=== PATIENT | male | born 1995 | race Caucasian/White ===

== ENCOUNTER 2024-05-15 18:46 | Emergency (ER) | payer BC, SELFPAY ==
--- NOTE | 2024-05-15 18:57 | ED_ITS ---
Discharge Plan Disposition Patient Disposition: Home, Self-Care Condition: Good Prescriptions Prescriptions: New pantoprazole 40 mg tablet,delayed release (DR/EC) 40 mg PO DAILY Qty: 30 0RF ondansetron 4 mg tablet,disintegrating 4 mg PO Q8H PRN (Reason: nausea and vomiting) 4 Days Qty: 12 0RF Referrals Follow up/Referrals: Provider,Referral, MD [Primary Care Provider] - See instructions Activity Restrictions/Add. Instructions Additional Instructions/Restrictions: You were evaluated in the emergency department today. At this time, labs and CT scans are reassuring. Ultimately, it is possible you have gastritis. For this, we are prescribing you pantoprazole which is stomach acid medication. I have also sent in Zofran for you to have as needed for nausea and vomiting. Please follow-up very closely with your primary care provider over the next 48 hours. Return to the emergency department for new or worsening symptoms. Clinical Impressions Clinical Impression: Acute upper abdominal pain, Gastritis, Early satiety Stand Alone Forms Stand Alone Forms: Work/School Release Instructions Patient Instructions: DI for Gastritis, DI for Abdominal Pain-Adult Print Language Print Language: Korean Discharge ED Provider: Razia Barcenas General Adult HPI <LORENZO Marshall - Last Filed: 05/15/24 19:16> General Chief complaint: Recheck/Abnormal Lab/Rx Stated complaint: feels like stomach is full w/no appitite or eating Time Seen by Provider: 05/15/24 18:57 Related Data Previous Rx's ?Medication ?Instructions ?Recorded ondansetron 4 mg disintegrating 4 mg PO Q8H PRN nausea and 05/15/24 tablet vomiting 4 days #12 tabs pantoprazole 40 mg tablet,delayed 40 mg PO DAILY #30 tabs 05/15/24 release Allergies Allergy/AdvReac Type Severity Reaction Status Date / Time Penicillins Allergy Rash Verified 05/15/24 19:08 <Razia Barcenas DO - Last Filed: 05/15/24 23:06> History of Present Illness HPI narrative: This patient is a 28-year-old male with a 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 Patient reports that 3 days ago, he went and did Airsoft guns with his friends, and he had a headache the whole day afterward. He states that usually he does not get headaches and when he does, headaches typically go away with drinking oral fluids. He push oral fluids and the headache is finally gone away today, but he is not feeling right and has had a poor appetite. He has not been able to eat very much over the last 24 hours. He notes that he feels like he has a lump in his throat like he needs to burp but burping does not help. He also notes that he feels like he has early fullness no fevers, chills, vision changes, numbness, tingling, unilateral weakness, sore throat, cough, congestion, body aches, chest pain, shortness of breath, abdominal pain, urinary symptoms, rashes, or swelling. He does note that he has had some diarrhea on review of systems. [facility] <LORENZO Marshall - Last Filed: 05/15/24 19:16> [facility] Disclaimer: The information contained in this section may have been updated after the patient was seen, as this information can be updated by other users. Social History Smoking Status: Never smoker alcohol intake: never current occupational status: employed <LORENZO Marshall - Last Filed: 05/15/24 19:16> ROS Obtained: Yes Systems reviewed as appropriate & no additional complaints except as documented Physical Exam <LORENZO Marshall - Last Filed: 05/15/24 19:16> General General appearance: alert and in no apparent distress Head Head exam: atraumatic and normal inspection Eye Eye exam: Present normal appearance, PERRL and EOMI ENT ENT exam: Present normal exam, normal oropharynx and mucous membranes moist Neck Neck exam: Present normal inspection, full ROM and trachea midline; Absent lymphadenopathy Chest Chest inspection: Present normal inspection and symmetric chest wall rise Respiratory Respiratory exam: Present normal lung sounds bilaterally; Absent accessory muscle use Cardiovascular Cardiovascular exam: Present regular rate, normal rhythm, normal heart sounds, +S1 and +S2 Abdominal Exam Abdominal exam: Present soft and normal bowel sounds; Absent tenderness, guarding or rebound Extremities Exam Extremities exam: Present normal inspection and full ROM Neurological Exam Neurological exam: Present alert, oriented X3 and CN II-XII intact Psychiatric Psychiatric exam: Present normal affect and normal mood Skin Skin exam: Present warm, dry and normal color Lymphatic Lymphatic Findings: no adenopathy <Razia Barcenas DO - Last Filed: 05/15/24 23:06> Cardiovascular Cardiovascular exam: Present tachycardia Back Exam Back exam: Present normal inspection and full ROM; Absent tenderness Medical Decision Making <LORENZO Marshall - Last Filed: 05/15/24 19:16> Medical Records Screening: Per USPSTF and CDC recommendations, given the prevalence of disease in our region, it is our hospital?s policy to screen for HIV and viral Hepatitis for all patients aged 18 and over and those with ongoing risk factors. Vital Signs: 05/15/24 18:59 05/15/24 21:54 Temperature 98.2 F 97.8 F Temperature Source Oral Oral Pulse Rate 89 Pulse Rate [Left] 118 H Respiratory Rate 18 17 Blood Pressure 117/79 Blood Pressure [Right Arm] 118/98 H Blood Pressure Mean [Right Arm] 104 Blood Pressure Source Automatic Cuff Blood Pressure Source [Right Arm] Automatic Cuff Blood Pressure Position Sitting Blood Pressure Position [Right Arm] Sitting 02 Sat by Pulse Oximetry 98 Oxygen Delivery Method Room Air Room Air Lab Data Lab Results 05/15/24 19:05: WBC 6.1, RBC 5.23, Hgb 16.0, Hct 46.7, MCV 89.4, MCH 30.6, MCHC 34.2, RDW 13.3, Plt Count 214, MPV 7.3 L, Neut % (Auto) 65.8, Lymph % (Auto) 24.0, Harnett % (Auto) 5.7, Eos % (Auto) 3.5, Baso % (Auto) 1.0, Neut # (Auto) 4.0, Lymph # (Auto) 1.5, Harnett # (Auto) 0.4, Eos # (Auto) 0.2, Baso # (Auto) 0.1, Sodium 140, Potassium 3.8, Chloride 105, Carbon Dioxide 25, Anion Gap 13.8, BUN 8 L, Creatinine 1.00, Estimated Creat Clear 128, Estimated GFR 88, Est GFR ( Amer) 106, Glucose 104 H, Calcium 9.5, Total Bilirubin 1.0, AST 33, ALT 25, Alkaline Phosphatase 90, Troponin I < 0.01, Total Protein 8.2, Albumin 4.9, Globulin 3.3 H, Albumin/Globulin Ratio 1.5, Lipase 54, TSH 1.47, Thyroxine (T4) 12.0 H, HIV 1&2 Antibody Rapid Nonreactive 05/15/24 19:19: VBG pH 7.37, VBG pCO2 43.4, VBG pO2 42.9 H, VBG HCO3 24.4, VBG Total CO2 25.7, VBG O2 Saturation 81.7 H, VBG Base Excess -0.9, VBG Lactic Acid 1.7 05/15/24 19:30: SARS-CoV-2 (PCR) Not detected, Influenza A Untype (PCR) Not detected, Influenza Type B (PCR) Not detected 05/15/24 20:27: Urine Color Yellow, Urine Appearance Clear, Urine pH 6.0, Ur Specific Warren 1.015, Urine Protein Negative, Urine Glucose (UA) Negative, Urine Ketones Negative, Urine Blood Negative, Urine Nitrate Negative, Urine Bilirubin Negative, Urine Urobilinogen 0.2, Ur Leukocyte Esterase Negative, Urine RBC None, Urine WBC Occasional, Ur Squamous Epith Cells Occasional, Urine Bacteria 2+, Urine Mucus 2+ 05/15/24 19:05 05/15/24 19:05 Orders (Tests/Meds): ED MEDICATIONS Discontinued Medications Generic Name Dose Route Start Last Admin Trade Name Mitra PRN Reason Stop Dose Admin Acetaminophen 1,000 mg 05/15/24 20:48 05/15/24 21:07 Acetaminophen 500mg Tab PO 05/15/24 20:49 1,000 mg ONCE ONE Administration Famotidine 20 mg 05/15/24 19:22 05/15/24 19:31 Famotidine 20mg/2ml Vial IV 05/15/24 19:23 20 mg ONCE ONE Administration Lactated Ringer's 1,000 mls @ 999 mls/hr 05/15/24 19:22 05/15/24 19:31 Lactated Ringer's 1000 Ml Bag IV 05/15/24 20:22 999 mls/hr .Q1H1M ONE Administration Iopamidol 70 ml 05/15/24 21:00 05/15/24 21:01 Iopamidol-370 (76%);100ml Bottle IV 05/15/24 21:01 70 ml ONCE ONE Administration Ondansetron HCl 4 mg 05/15/24 19:22 05/15/24 19:31 Ondansetron 4mg/2ml Vial IV 05/15/24 19:23 4 mg ONCE ONE Administration Pantoprazole Sodium 40 mg 05/15/24 20:48 05/15/24 21:07 Pantoprazole 40mg Tablet PO 05/15/24 20:49 40 mg ONCE ONE Administration Sodium Chloride 8 ml 05/15/24 19:22 05/15/24 19:31 Sodium Chloride 0.9% 10ml Vial IV 06/14/24 19:21 8 ml NEEDED PRN Administration dilute pepcid Sodium Chloride 50 ml 05/15/24 21:00 05/15/24 21:01 0.9 % Sodium Chloride 50 Ml Vial IV 05/15/24 21:01 50 ml ONCE ONE Administration Sodium Chloride 10 ml 05/15/24 21:00 05/15/24 21:01 Sodium Chloride 0.9% 10ml Syr (Rad Only) IV 05/15/24 21:01 10 ml ONCE ONE Administration ORDERS Category Date Time Status CT abdomen pelvis w con Stat Cat Scan 05/15/24 20:48 Completed CTA Chest [CT angio chest PE protocol] Stat Cat Scan 05/15/24 20:48 Completed Complete Blood Count Auto Diff Stat Lab 05/15/24 19:05 Completed Comprehensive Metabolic Panel Stat Lab 05/15/24 19:05 Completed HIV (1&2) Antibody Rapid Stat Lab 05/15/24 19:05 Completed Hep C Ab with Reflex to RNA Stat Lab 05/15/24 19:05 Received Lipase Stat Lab 05/15/24 19:05 Completed Rapid PCR Covid and Flu A/B Stat Lab 05/15/24 19:30 Completed T4 (Thyroxine) Stat Lab 05/15/24 19:05 Completed TSH [Thyroid Stimulating Hormone] Stat Lab 05/15/24 19:05 Completed Trop I [Troponin I] Stat Lab 05/15/24 19:05 Completed UA [Urinalysis and Microscopic] Stat Lab 05/15/24 20:27 Completed Urine Culture Stat Micro 05/15/24 20:27 Received VBG [Venous Blood Gas] Stat RT 05/15/24 19:19 Completed Medical Decision Narrative: In summary patient is a [age, sex] who presents to the emergency department for evaluation of [complaint]. Patient is [hemodynamically stable/unstable] upon arrival, [febrile/afebrile]. [Unremarkable physical exam, nonfocal exam versus focal remarkable exam]. Differential diagnosis includes [DDx]. Initial workup will be conducted with [hematologic labs, imaging, respiratory swab, describe workup]. Initial interventions include [crystalloid bolus, medications, p.o. challenge, etc.] initial workup reviewed by me [hematologic labs are remarkable for... Imaging remarkable for... Urinalysis remarkable for]. Upon repeat evaluation [patient had acceptable resolution of symptoms, had persistent pain for which additional interventions were conducted (describe interventions), tolerated p.o., was ambulatory, etc.]. Given this [patient is appropriate for discharge at this time and will be discharged with a prescription for... The case was discussed with hospital medicine regarding management and they will admit the patient their service for continued evaluation at this time... Etc.] Places where you can increase complexity: I informally interpreted the patient's chest x-ray or CT read and is remarkable for... Documenting what the doctor of podiatric medicine shows with rate and rhythm Consideration of test but deferring. Ex: I considered chest x-ray on this patient however given that they have no oxygen requirement and are clear to auscultation all lung zurita will be deferred. Social determinants of health: Given that patient is undomiciled increases complexity. Given that patient has polysubstance abuse compounds all aspects of care <Razia Barcenas, DO - Last Filed: 05/15/24 23:06> Medical Records Medical records reviewed: Yes I reviewed the patient's medical records. Mert Inquiry Pt receiving controlled substance: No Vital Signs: 05/15/24 18:59 05/15/24 21:54 Temperature 98.2 F 97.8 F Temperature Source Oral Oral Pulse Rate 89 Pulse Rate [Left] 118 H Respiratory Rate 18 17 Blood Pressure 117/79 Blood Pressure [Right Arm] 118/98 H Blood Pressure Mean [Right Arm] 104 Blood Pressure Source Automatic Cuff Blood Pressure Source [Right Arm] Automatic Cuff Blood Pressure Position Sitting Blood Pressure Position [Right Arm] Sitting 02 Sat by Pulse Oximetry 98 Oxygen Delivery Method Room Air Room Air Lab Data Lab results reviewed: Yes I reviewed the patient's lab results. Lab Results 05/15/24 19:05: WBC 6.1, RBC 5.23, Hgb 16.0, Hct 46.7, MCV 89.4, MCH 30.6, MCHC 34.2, RDW 13.3, Plt Count 214, MPV 7.3 L, Neut % (Auto) 65.8, Lymph % (Auto) 24.0, Harnett % (Auto) 5.7, Eos % (Auto) 3.5, Baso % (Auto) 1.0, Neut # (Auto) 4.0, Lymph # (Auto) 1.5, Harnett # (Auto) 0.4, Eos # (Auto) 0.2, Baso # (Auto) 0.1, Sodium 140, Potassium 3.8, Chloride 105, Carbon Dioxide 25, Anion Gap 13.8, BUN 8 L, Creatinine 1.00, Estimated Creat Clear 128, Estimated GFR 88, Est GFR ( Amer) 106, Glucose 104 H, Calcium 9.5, Total Bilirubin 1.0, AST 33, ALT 25, Alkaline Phosphatase 90, Troponin I < 0.01, Total Protein 8.2, Albumin 4.9, Globulin 3.3 H, Albumin/Globulin Ratio 1.5, Lipase 54, TSH 1.47, Thyroxine (T4) 12.0 H, HIV 1&2 Antibody Rapid Nonreactive 05/15/24 19:19: VBG pH 7.37, VBG pCO2 43.4, VBG pO2 42.9 H, VBG HCO3 24.4, VBG Total CO2 25.7, VBG O2 Saturation 81.7 H, VBG Base Excess -0.9, VBG Lactic Acid 1.7 05/15/24 19:30: SARS-CoV-2 (PCR) Not detected, Influenza A Untype (PCR) Not detected, Influenza Type B (PCR) Not detected 05/15/24 20:27: Urine Color Yellow, Urine Appearance Clear, Urine pH 6.0, Ur Specific Warren 1.015, Urine Protein Negative, Urine Glucose (UA) Negative, Urine Ketones Negative, Urine Blood Negative, Urine Nitrate Negative, Urine Bilirubin Negative, Urine Urobilinogen 0.2, Ur Leukocyte Esterase Negative, Urine RBC None, Urine WBC Occasional, Ur Squamous Epith Cells Occasional, Urine Bacteria 2+, Urine Mucus 2+ Orders (Tests/Meds): ED MEDICATIONS Discontinued Medications Generic Name Dose Route Start Last Admin Trade Name Freq PRN Reason Stop Dose Admin Acetaminophen 1,000 mg 05/15/24 20:48 11/25/24 21:07 Acetaminophen 500mg Tab PO 05/15/24 20:49 1,000 mg ONCE ONE Administration Famotidine 20 mg 05/15/24 19:22 05/15/24 19:31 Famotidine 20mg/2ml Vial IV 05/15/24 19:23 20 mg ONCE ONE Administration Lactated Ringer's 1,000 mls @ 999 mls/hr 05/15/24 19:22 05/15/24 19:31 Lactated Ringer's 1000 Ml Bag IV 05/15/24 20:22 999 mls/hr .Q1H1M ONE Administration Iopamidol 70 ml 05/15/24 21:00 05/15/24 21:01 Iopamidol-370 (76%);100ml Bottle IV 05/15/24 21:01 70 ml ONCE ONE Administration Ondansetron HCl 4 mg 05/15/24 19:22 05/15/24 19:31 Ondansetron 4mg/2ml Vial IV 05/15/24 19:23 4 mg ONCE ONE Administration Pantoprazole Sodium 40 mg 05/15/24 20:48 05/15/24 21:07 Pantoprazole 40mg Tablet PO 05/15/24 20:49 40 mg ONCE ONE Administration Sodium Chloride 8 ml 05/15/24 19:22 05/15/24 19:31 Sodium Chloride 0.9% 10ml Vial IV 06/14/24 19:21 8 ml NEEDED PRN Administration dilute pepcid Sodium Chloride 50 ml 05/15/24 21:00 05/15/24 21:01 0.9 % Sodium Chloride 50 Ml Vial IV 05/15/24 21:01 50 ml ONCE ONE Administration Sodium Chloride 10 ml 05/15/24 21:00 05/15/24 21:01 Sodium Chloride 0.9% 10ml Syr (Rad Only) IV 05/15/24 21:01 10 ml ONCE ONE Administration ORDERS Category Date Time Status CT abdomen pelvis w con Stat Cat Scan 05/15/24 20:48 Completed CTA Chest [CT angio chest PE protocol] Stat Cat Scan 05/15/24 20:48 Completed Complete Blood Count Auto Diff Stat Lab 05/15/24 19:05 Completed Comprehensive Metabolic Panel Stat Lab 05/15/24 19:05 Completed HIV (1&2) Antibody Rapid Stat Lab 05/15/24 19:05 Completed Hep C Ab with Reflex to RNA Stat Lab 05/15/24 19:05 Received Lipase Stat Lab 05/15/24 19:05 Completed Rapid PCR Covid and Flu A/B Stat Lab 05/15/24 19:30 Completed T4 (Thyroxine) Stat Lab 05/15/24 19:05 Completed TSH [Thyroid Stimulating Hormone] Stat Lab 05/15/24 19:05 Completed Trop I [Troponin I] Stat Lab 05/15/24 19:05 Completed UA [Urinalysis and Microscopic] Stat Lab 05/15/24 20:27 Completed Urine Culture Stat Micro 05/15/24 20:27 Received VBG [Venous Blood Gas] Stat RT 05/15/24 19:19 Completed ECG Data Tracing #1: I reviewed this ECG and interpreted as documented below: Normal sinus rhythm with a ventricular rate of 77 bpm. Right axis deviation. No acute ST changes concerning for ischemia noted. 1 PVC noted. Normal intervals noted ECG initial impression date: 05/15/24 ECG initial impression time: 19:43 Medical Decision Narrative: In summary, this patient is a 28-year-old male presenting to the Emergency Department for evaluation of nausea, poor appetite, early satiety. He did have a headache yesterday but this resolved. Differential diagnoses considered include but are not limited to viral syndrome, gastroenteritis, dehydration, pancreatitis, peptic ulcer disease, esophagitis. Ruling out the most morbid conditions drove assessment. It should be noted patient's history includes leukemia which is reportedly at goal therapy. This complicates all aspects of care by increasing patient's risk for morbidity. On exam, the patient is sitting upright in bed in no acute distress. He is mildly tachycardic but otherwise vitals are reassuring. Exam is reassuring with benign cardiopulmonary exam and benign abdominal exam. He is neurologically intact and has no headache or neurologic symptoms at this time. Workup included broad lab evaluation to evaluate for infectious, metabolic, cardiac causes of his symptoms. He was given a bolus of IV fluids as well as IV Zofran and Pepcid. On reassessment, the patient is now complaining of left upper quadrant abdominal pain is worse when he takes a deep breath. Labs demonstrated normal CBC, reassuring chemistry with no transaminitis, elevation in lipase, or other concern. Troponin negative and EKG reassuring. I ordered CT PE as well as CT abdomen pelvis with IV contrast given the patient's significant pain and continued concern. CT scans were not concerning for any acute pathology. Ultimately, I feel that the patient is appropriate for discharge home at this time. It is possible this could be gastritis, so he was treated with PPI. He was given very strict return precautions and instructions for close outpatient follow-up Critical Care <Razia Barcenas, DO - Last Filed: 05/15/24 23:06> Critical Care Time Critical Care Time: No
[2024-05-15 18:59] VITALS: BP 118/98; PULSE 118; RESP 18; TEMP 36.8; O2SAT 98; BMI 25.1
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
--- OUTSIDE RECORDS SUMMARY | 2024-05-15 19:17 | XMS_ITS | Clinical Summary ---
Author Organization [facility] Address [address] [place] [address] Phone [email or web address] [email or web address] Care Chainman Name Role Phone Unavailable Primary Care Provider Unavailabl e Allergies Active Allergy Reactions Criticality Noted Date Comments Penicillins Rash Low 08/31/2013 Medications levothyroxine (SYNTHROID) 112 MCG tablet Take 112 mcg by mouth once daily as needed. 04/13/2022 Active Active Problems No known active problems Social History Tobacco Use Types Packs/Day Years Used Date Smoking Tobacco: Never Assessed Stress Answer Date Recorded Stress in your Life Not on file 04/24/2024 Dealing with Stress 3 04/24/2024 Sex and Gender Information Value Date Recorded Sex Assigned at Not on file Legal Sex Male 7:15 AM CDT Gender Identity Not on file Sexual Orientation Not on file Last Filed Vital Signs Vital Sign Reading Time Taken Comments Blood Pressure 105/73 08/24/2023 10:17 PM EST Pulse 74 08/24/2023 10:17 PM EST Temperature 36.2 ??C (97.1 ??F) 08/24/2023 10:[address] Respiratory Rate 18 12/30/2022 8:15 AM EDT Oxygen Saturation 98% 08/24/2023 10:17 PM EST Inhaled Oxygen Concentration - - Weight 86.6 kg (191 lb) 08/24/2023 10:17 PM EST Height 182.9 cm (6') 08/24/2023 10:17 PM EST Body Mass Index 25.9 08/24/2023 10:17 PM EST Plan of Treatment Health Maintenance Due Date Last Done Comments Dental Cleaning/Exam 1993 HIV Screening 1993 Hepatitis C Screening 1993 Tetanus (Tdap or Td) Immunization 2004 Hep B Infection Screening - Surface Antigen 2011 Covid-19 Immunization (3 - Moderna risk series) 11/12/2021 10/15/2021, 09/17/2021 HPV Immunization (3 - Risk male 3-dose series) 07/26/2022 03/25/2022, 10/28/2021 Polio Immunization (4 of 4 - 5-dose series) 01/21/2023 07/24/2022, 03/25/2022, 10/28/2021, Additional history exists Annual Preventive Exam 12/31/2023 12/30/2022 Influenza Immunization (#1) 2024 03/0 12/2021, 05/24/2020, 04/21/2017 HIB Immunization Aged Out 07/24/2022, 10/2021, 10/28/2021 No longer eligible based on patient's age to complete this topic Hepatitis B Immunization Completed 023, 03/25/2022, 10/28/2021 Pneumococcal: Ped (0 to 5 Yrs) and At-Risk Member (6 to 64 Yrs) Aged Out 07/24/2022, 03/25/2022, 10/28/2021 No longer eligible based on patient's age to complete this topic Hepatitis A Immunization Aged Out No longer eligible based on patient's age to complete this topic Varicella Immunization Aged Out No lo nger eligible based on patient's age to complete this topic
[2024-05-15 19:25] LABS: Basophils # 0.1 K/mm3 (0-0.2); Eosinophils # 0.2 K/mm3 (0.0-0.4); Eosinophils % 3.5 % (0.1-12.0); Hematocrit 46.7 % (42.0-52.0); Lymphocytes # 1.5 K/mm3 (0.7-4.5); Mean Corpuscular HGB Conc 34.2 g/dL (31.8-35.4); Mean Corpuscular Hemoglobin 30.6 pg (27.0-31.2); Mean Corpuscular Volume 89.4 fl (80-94); Mean Platelet Volume 7.3 fl (7.4-10.4); Monocytes # 0.4 K/mm3 (0.1-1.0); Monocytes % 5.7 % (1.7-9.3); Neutrophils % 65.8 % (37.0-80.0); Platelet Count 214 K/mm3 (142-424); Red Blood Count 5.23 M/mm3 (4.60-6.20); Red Cell Distribution Width 13.3 % (11.5-17.5); White Blood Count 6.1 K/mm3 (4.8-10.8)
[2024-05-15 19:30] LABS: Lactate Venous 1.7 mmol/L (0.4-2.0); VBG Base Excess -0.9 mmol/L (-2.4-2.3); VBG HCO3 24.4 mmol/L (23-30); VBG Oxygen Saturation 81.7 % (50-70); VBG PCO2 43.4 mmol/L (35-51); VBG PH 7.37 mmol/L (7.31-7.41); VBG PO2 42.9 mmol/L (28-40); VBG Total CO2 25.7 mmol/L (23-27)
[2024-05-15] MEDS: FAMOTIDINE 20MG/2ML VIAL 20 MG IV (19:31)
[2024-05-15] MEDS: ONDANSETRON 4MG/2ML VIAL 4 MG IV (19:31)
[2024-05-15] MEDS: LACTATED RINGERS 1000ML 1,000 ML 999 ML IV (19:31)
[2024-05-15] MEDS: SODIUM CHLORIDE 0.9% 10ML VIAL 8 ML IV (19:31)
[2024-05-15 19:40] LABS: Coronavirus 19, PCR Not Detected (NotDetected); Influenza A, PCR Not Detected (NotDetected); Influenza B, PCR Not Detected (NotDetected)
--- NOTE | 2024-05-15 19:40 | ECG_ITS ---
APPROVED REPORT Exam: Resting ECG HR:77 bpm ECG Measurements Heart Rate 77 AXES ME 160 P 73 QRSd 93 QRS 104 QT 357 T 63 QTc 389 Conclusion SINUS RHYTHM WITH OCCASIONAL VENTRICULAR PREMATURE COMPLEXES RIGHT AXIS DEVIATION [QRS AXIS > 100] ABNORMAL ECG Electronically signed by : COLETTE PATEL, 05/15/2024 23:28:24
[2024-05-15 19:53] LABS: Albumin Level 4.9 g/dl (3.5-5.0); Chloride 105 mmol/L (98-107); Sodium 140 mmol/L (136-145)
[2024-05-15 19:54] LABS: Potassium 3.8 mmoL/L (3.5-5.1)
[2024-05-15 19:56] LABS: Alanine Aminotransferase 25 U/L (12-78); Albumin/Globulin Ratio 1.5 (1.1-1.8); Alkaline Phosphatase 90 U/L (38-126); Anion Gap 13.8 mEq/L (5-15); Aspartate Amino Transferase 33 U/L (17-59); Blood Urea Nitrogen 8 mg/dl (9-20); Carbon Dioxide 25 mmol/L (22.0-30.0); Creatinine Clearance Estimated 128 mL/min (50-200); Estimated Glomerular Filt Rate 88 ml/min (>60); GFR (African American) 106 ML/MIN (>60); Globulin 3.3 g/dL (1.3-3.2); Lipase 54 U/L (23-300); Total Protein,Serum 8.2 g/dl (6.3-8.2)
[2024-05-15 19:57] LABS: Calcium 9.5 mg/dl (8.4-10.2); Glucose 104 mg/dl (74-100)
[2024-05-15 20:10] LABS: Troponin I < 0.01 ng/ml (0.00-0.034)
[2024-05-15 20:27] LABS: Thyroid Stimulating Hormone 1.47 uIU/mL (0.465-4.68)
[2024-05-15 20:32] LABS: Microscopic, Urine URINE MICROSCOPIC (MICROSCOPIC)
[2024-05-15 20:35] LABS: Appearance,Urine CLEAR (Clear); Bilirubin,Urine Negative (Negative); Blood, Urine Negative (Negative); Color,Urine YELLOW (Yellow); Glucose,Urine (UA) Negative (Negative); Ketones,Urine Negative (Negative); Leukocyte Esterase,Urine Negative (Negative); Nitrate,Urine Negative (Negative); Protein,Urine Negative (Negative); Specific Gravity, Urine 1.015 (1.005-1.030); Urobilinogen,Urine 0.2 EU/dl (0.2)
--- NOTE | 2024-05-15 20:48 | CT_ITS ---
PROCEDURE INFORMATION: Exam: CT Abdomen And Pelvis With Contrast Exam date and time: 05/15/2024 8:59 PM Age: 28 years old Clinical indication: Abdominal pain; Additional info: L side pain, pmh leukemia TECHNIQUE: Imaging protocol: Computed tomography of the abdomen and pelvis with contrast. 3D rendering (Not supervised by radiologist): MIP and/or 3D reconstructed images were created by the technologist. Radiation optimization: All CT scans at this facility use at least one of these dose optimization techniques: automated exposure control; mA and/or kV adjustment per patient size (includes targeted exams where dose is matched to clinical indication); or iterative reconstruction. Contrast material: ISOVUE; Contrast volume: 70 ml; Contrast route: IV; COMPARISON: CT ANGIO CHEST PE PROTOCOL 05/15/2024 8:59 PM FINDINGS: Liver: Normal. No mass. Gallbladder and biliary ducts: Normal. No calcified stones. No ductal dilation. Pancreas: Normal. No ductal dilation. Spleen: Normal. No splenomegaly. Adrenal glands: Normal. No mass. Kidneys and ureters: Normal. No hydronephrosis. Stomach and bowel: Multiple surgical clips are present around the cecum with an additional suture line adjacent to the cecum indicating previous appendectomy. No abnormal bowel dilation Appendix: See Stomach and bowel finding. Intraperitoneal space: No visible free peritoneal fluid Vasculature: Unremarkable. No abdominal aortic aneurysm. Lymph nodes: Unremarkable. No enlarged lymph nodes. Urinary bladder: Unremarkable as visualized. Reproductive: Unremarkable as visualized. Bones/joints: Unremarkable. No acute fracture. Soft tissues: Unremarkable. IMPRESSION: 1. No visible acute intra-abdominal abnormality. 2. Prior appendectomy.
--- NOTE | 2024-05-15 20:48 | CT_ITS ---
PROCEDURE INFORMATION: Exam: CTA Chest With Contrast Exam date and time: 05/15/2024 8:59 PM Age: 28 years old Clinical indication: Other: L side pain, pmh leukemia TECHNIQUE: Imaging protocol: Computed tomographic angiography of the chest with contrast. Exam focused on the arteries. 3D rendering (Not supervised by radiologist): MIP and/or 3D reconstructed images were created by the technologist. Radiation optimization: All CT scans at this facility use at least one of these dose optimization techniques: automated exposure control; mA and/or kV adjustment per patient size (includes targeted exams where dose is matched to clinical indication); or iterative reconstruction. Contrast material: ISOVUE 370; Contrast volume: 70 ml; Contrast route: INTRAVENOUS (IV); COMPARISON: CT ABDOMEN PELVIS W CON 05/15/2024 8:59 PM FINDINGS: Pulmonary arteries: No CT evidence of acute pulmonary embolus. Aorta: No aortic dissection. Lungs: Unremarkable. No consolidation. No masses. Pleural spaces: No pleural effusion. No pneumothorax. Heart: Unremarkable. No cardiomegaly. No pericardial effusion. Lymph nodes: Unremarkable. No enlarged lymph nodes. Bones/joints: Unremarkable. No acute fracture. Soft tissues: Unremarkable. Other findings: Suboptimal contrast bolus. Many of the smaller subsegmental branches are not well opacified. IMPRESSION: No CT evidence of acute pulmonary embolus.
[2024-05-15 20:50] LABS: Bacteria,Urine 2+ /lpf; Mucus,Urine 2+ /lpf; Squamous Epithelial Cell,Urine Occasional #/hpf (0-5); WBC,Urine Occasional #/hpf (0-3)
[2024-05-15] MEDS: IOPAMIDOL-370 (76%);100ML BOTTLE 70 ML IV (21:01)
[2024-05-15] MEDS: 0.9 % SODIUM CHLORIDE 50 ML VIAL IV (21:01)
[2024-05-15] MEDS: SODIUM CHLORIDE 0.9% 10ML SYR (RAD ONLY) 10 ML IV (21:01)
[2024-05-15] MEDS: PANTOPRAZOLE 40MG TABLET 40 MG PO (21:07)
[2024-05-15] MEDS: ACETAMINOPHEN 500MG TAB 1000 MG PO (21:07)
[2024-05-15 21:45] LABS: HIV (1&2) Antibody Rapid NONREACTIVE (NONREACTIVE)
[2024-05-15 21:54] VITALS: BP 117/79; PULSE 89; RESP 17; TEMP 36.6; O2SAT 98
[2024-05-17 08:22] LABS: HCV Ab Non Reactive (Non Reactive)
== END 2024-05-15 21:54 | disposition home or self-care (01) ==
PROVIDERS: Physician Assistant; Emergency Provider Emergency Medicine
DX: R68.81 Early satiety (principal); K29.70 Gastritis, unspecified, without bleeding; R10.10 Upper abdominal pain, unspecified; R11.0 Nausea; R63.8 Other symptoms and signs concerning food and fluid intake; R51.9 Headache, unspecified; R19.7 Diarrhea, unspecified
CPT/HCPCS: 71275; 74177; 80050; 80053; 81001; 82803; 83690; 84436; 84443; 84484; 85025; 86803; 87086; 87389; 87636; 93005; 96361; 96374; 96375; 99285; J2405; J7120; Q9967; S0028

== ENCOUNTER 2025-01-19 22:38 | Emergency (ER) | payer BC, SELFPAY ==
--- OUTSIDE RECORDS SUMMARY | 2024-12-20 16:00 | XMS_ITS | Encounter Summary ---
Author Organization Healthcare Address [address] 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 Medication management Other fatigue Roberto Macias DO [address] [place] [address] Phone: tel: fax: Referral ID Status Reason Start Date Expiration Date V isits Requested Visits Authorized [id number] Authorized 12/20/2024 06/21/2026 1 1 Reason for Visit * Reason Comments Hypothyroidism due to David's thyroi ditis Encounter Details Date Type Department Care Team (Late st Contact Info) Description 12/20/2024 4:00 PM EDT Office [facility] [address] [place] [address] Roberto Macias DO [address] [facility] [address] [place] [address] 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 (Primary Dx); Medication management; Other fatigue Social History Tobacco Use Types Packs/Day Years Used Date Smoking Tobacco: Never Smokeless Tobacco: Never Tobacco Cessation:Counseling Given: Not Answered Alcohol Use Standard Drinks/Week Comments Yes 0 (1 standard drink = 0.6 oz pur e alcohol) ocassionally PHQ-2 Answer Date Recorded Patient Health Questionnaire-2 Score 0 01/19/2024 PHQ-2A Answer Date Recorded Patient Health Questionnaire-2 Score 0 10/30/2022 Sex and Gender Information Value Date Recorded Sex Assigned at Not on file Legal Sex Male 8:50 PM EDT Gender Identity Not on file Sexual Orientation Not on file documented as of this encounter Last Filed Vital Signs Vital Sign Reading Time Taken Comments Blood Pressure 126/78 12/20/2024 4:23 PM EDT Pulse 73 12/20/2024 4:23 PM EDT Temperature - - Respiratory Rate - - Oxygen Saturation - - Inhaled Oxygen Concentration - - Weight 88.7 kg (195 lb 8.8 oz) 12/20/2024 4:23 P M EDT Height 182.9 cm (6') 12/20/2024 4:23 PM EDT Body Mass Index 26.52 12/20/2024 4:23 PM EDT documented in this encounter Miscellaneous Notes * Assessment & Plan Note - Roberto Macias DO - 12/20/2024 4:00 PM EDT Associated Problem(s): 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 * Assessment & Plan Note - Roberto Macias DO - 12/20/2024 4:00 PM EDT Associated Problem(s): Medication management Orders: TSH; Future T4, free; Future Follow Up [facility]; Future levothyroxine (Synthroid, Levoxyl) 112 MCG tablet; Take 1 tablet by mouth daily. * Addendum Note - Roberto Macias DO - 12/20/2024 4:00 PM EDTAddended by: ROBERTO MACIAS on: 12/21/2024 07:40 AM Modules accepted: Orders * Progress Notes - Roberto Macias DO - 12/20/2024 4:00 PM EDT Established Patient Visit [facility] Chief Complaint: Hypothyroidism Subjective HPI Mr. Way, 29 y/o M, is here today for a follow up visit for hypothyroidism. His medical history isnotable for APL which is currently in remission. He does feel like he is more fatigued and notes some weight gain. Thyroid Last Visit: 10/19/23 Diagnosis: hypothyroidism Diagnosis Date: 2021 Current Medications: Levothyroxine 112 mcg daily Compliance: good Reports taking on empty stomach without other medications. 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 The following portions of the patient's chart were reviewed in this encounter and updated as appropriate: past medical history, surgical history, family history, tobacco history, allergies, and medications Review of Systems Constitutional: Positive for fatigue and unexpected weight change. Negative for activity change. HENT: Negative for trouble swallowing. Respiratory: Negative for cough and shortness of breath. Cardiovascular: Negative for chest pain. Gastrointestinal: Negative for constipation and diarrhea. Allergic/Immunologic: Negative for immunocompromised state. Psychiatric/Behavioral: Negative for sleep disturbance. Objective Vitals: 12/20/24 1623 BP: 126/78 Pulse: 73 Physical Exam Constitutional: Appearance: Normal appearance. HENT: Head: Normocephalic and atraumatic. Right Ear: External ear normal. Left Ear: External ear normal. Nose: Nose normal. Mouth/Throat: Mouth: Mucous membranes are moist. Eyes: General: No scleral icterus. Neck: Comments: Thyroid gland is normal size Cardiovascular: Rate and Rhythm: Normal rate and regular rhythm. Pulmonary: Effort: Pulmonary effort is normal. No respiratory distress. Breath sounds: Normal breath sounds. Musculoskeletal: Cervical back: Neck supple. Skin: General: Skin is warm and dry. Neurological: Mental Status: He is alert and oriented to person, place, and time. Psychiatric: Mood and Affect: Mood normal. Thought Content: Thought content normal. 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 Medication management Orders: TSH; Future T4, free; Future Follow Up [facility]; Future levothyroxine (Synthroid, Levoxyl) 112 MCG tablet; Take 1 tablet by mouth daily. Other fatigue Orders: TSH; Future T4, free; Future Follow Up [facility]; Future Hypothyroidism due to David's Thyroiditis Medication Management -Diagnosed in 2021 -Thyroid antibodies were positive -Current regimen of Levothyroxine 112 mcg daily -Reports good compliance -No recent labs available for review PLAN: -Will check TSH and FT4 today -Continue current dosing of Levothyroxine and adjust, if needed, pending labs -Reviewed proper administration of Levothyroxine and if they miss a dose, can double the next day Fatigue -Worsening -Reports sleeping well and waking rested but could nap during the day -He is working shift manager PLAN: -Check TSH and FT4 as discussed above -If normal, fatigue would not be related to thyroid disease RTC in 1 year Roberto Macias, DO Post Visit Addendum: Labs reviewed and normal. Continue current dose of Levothyroxine. Messaged with results. Refills ordered. Component Latest Ref Rng 12/20/2024 Free T4 0.8 - 1.7 ng/dL 1.4 TSH 0.40 - 4.20 uIU/mL 2.32 [1] Current Outpatient Medications on File Prior to Visit Medication Sig Dispense Refill levothyroxine (Synthroid, Levoxyl) 112 MCG tablet TAKE 1 TABLET BY MOUTH EVERY DAY 30 tablet 0 No current facility-administered medications on file prior to visit. [2] Allergies Allergen Reactions Penicillins Rash documented in this encounter Plan of Treatment Upcoming Encounters Date Type Department Care Team (Late st Contact Info) Description 01/24/2025 8:40 AM EDT Office Visit [facility] [address] [facility], [address]nd [place] [address] Vidya Corona, ACCOUNTS PAYABLE PROCESSOR [address] [place] [phone] 12/26/2025 4:00 PM EDT Office Visit [facility] End[facility] [address] [place] [address] Roberto Macias DO [address] [facility] [address] [place] [address] Scheduled Referrals Name Type Priority Associated Diagnoses Orde r Schedule Follow Up [facility] Outpatient Referral Routine Hypothyroidism Due To David Thyroiditis Medication management Other fatigue Expected: 12/20/2025, Expires: 06/23/2026 documented as of this encounter Results * T4, free (12/20/2024 4:47 PM EDT) Free T4, Plasma 1.4 0.8 - 1.7 ng/dL 12/20/2024 6:57 PM EDT [facility] Blood Venous blood specimen / Unknown Venipuncture / Unknown 12/20/2024 4:47 PM EDT 12/20/2024 4:47 PM EDT us Roberto Macias DO LAB BLOOD ORDERABLES Final Result Performing Organization Address City/[facility]/ZIP Co de Phone Number [address] [address] * TSH (12/20/2024 4:47 PM EDT) Thyroid Stimulating Hormone, Plasma 2.32 0.40 - 4.20 uIU/mL 12/20/2024 6:57 PM EDT [facility] Blood Venous blood specimen / Unknown Venipuncture / Unknown 12/20/2024 4:47 PM EDT 12/20/2024 4:47 PM EDT us Roberto Macias DO LAB BLOOD ORDERABLES Final Result Performing Organization Address City/[facility] Co de Phone Number [address] [address] documented in this encounter Visit Diagnoses Diagnosis 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- Primary Medication management Other fatigue documented in this encounter Additional Health Concerns Assessment Noted Time A fall risk assessment has been complete d for the patient 01/19/2024 8:03 AM EDT A Body Mass Index follow-up plan has been documented for the patient 12/20/2024 4:59 PM EDT documented as of this encounter Care Teams Tamper Operator Relationship Specialty Start Date End Date Kate Juarez MD [address] [place] [address] [address] PCP - General Hematology and Oncology 05/27/21 Gennaro Winn [address] [place] [phone] Narrative Medicine Narrative Medicine 04/09/21 documented as of this encounter
[2025-01-19 22:54] VITALS: BP 129/82; PULSE 81; RESP 18; TEMP 36.8; O2SAT 98; BMI 25.7
--- OUTSIDE RECORDS SUMMARY | 2025-01-19 22:55 | XMS_ITS | Clinical Summary ---
Demographics Address [address] [place] [address] Home Phone Preferred Language Sri Lankan Marital Status Single Restorationism Affiliation Unknown Race Unknown Ethnic Group Unknown Author Organization [facility] Address [address] [place] [address] Care Team Providers Care Petrographer Name Role Phone None, Physician Primary Care Provider Unavailabl e Allergies Active Allergy Reactions Criticality Noted Date Comments Penicillins Rash Low 08/31/2013 Medications omeprazole (PRILOSEC) 20 MG capsule Take 1 capsule by mouth daily 15 capsule 1 10/25/2014 Active Active Problems No known active problems Social History Tobacco Use Types Packs/Day Years Used Date Smoking Tobacco: Never Sex and Gender Information Value Date Recorded Sex Assigned at Not on file Legal Sex Male 11:23 AM EDT Gender Identity Not on file Sexual Orientation Not on file Last Filed Vital Signs Vital Sign Reading Time Taken Comments Blood Pressure 101/65 10/25/2014 5:41 AM EDT Pulse 70 10/25/2014 5:41 AM EDT Temperature 36.6 C (97.9 F) 10/24/2014 10:17 PM EDT Respiratory Rate 18 10/25/2014 5:41 AM EDT Oxygen Saturation 98% 10/25/2014 5:25 AM EDT Inhaled Oxygen Concentration - - Weight 79.4 kg (175 lb) 10/24/2014 10:17 PM EDT Height 182.9 cm (6') 10/24/2014 10:17 PM EDT Body Mass Index 23.73 10/24/2014 10:17 PM EDT Plan of Treatment Health Maintenance Due Date Last Done Comments Hepatitis B (HepB) Vaccine ( 1 of 3 - 19+ 3-dose series) 2012 Tdap/Td Vaccine >11 yo (1 - Tdap) 2012 HPV Vaccine (1 - 3-dose SCDM series) 2020 Annual SDOH Screening 06/21/2024 Influenza Vaccine (#1) 2025 Haemophilus Influenzae Type B (Hib) Vaccine Aged Out No longer eligible b ased on patient's age to complete this topic Hepatitis A (HepA) Vaccine Aged Out N o longer eligible based on patient's age to complete this topic Meningococcal ACWY Aged Out No longer eligible based on patient's age to complete this topic Pneumococcal Vaccines 6-49 yo Risk Aged Out No longer eligible based on patient's age to complete this topic Polio (IPV) Aged Out No longer eligi ble based on patient's age to complete this topic Rotavirus (RV) Vaccine Aged Out No lo nger eligible based on patient's age to complete this topic Insurance ANTHEM Care Teams Petrographer Relationship Specialty Start Date End Date None, Physician PCP - General 08/31/13
--- OUTSIDE RECORDS SUMMARY | 2025-01-19 22:55 | XMS_ITS | Encounter Summary ---
Author Organization Healthcare Address [address] [place] [address] Care Team Providers Care Migration Agent Name Role Phone Gennaro Winn Kate Juarez MD Primary Care Provider [phone] Encounter Details Date Type Department Care Team (Latest Contact Info) Description 12/20/2024 Travel Social History Tobacco Use Types Packs/Day Years Used Date Smoking Tobacco: Never Smokeless Tobacco: Never Alcohol Use Standard Drinks/Week Comments Yes 0 [...] on file documented as of this encounter Plan of Treatment Upcoming Encounters Date Type Department Care Team ( Contact Info) Description 01/24/2025 8:40 AM EDT Office Visit [facility] [address] [facility], [address] [place] [address] Vidya Corona, UNDERWEAR WELTER [address] [place] [phone] 12/26/2025 4:00 PM EDT Office Visit [facility] [address] [place] [address] Ivonne Chou, DO [address] [place] [address] documented as of this encounter Visit Diagnoses Not on filedocumented in this encounter Additional Health Concerns Assessment Noted Time A fall risk assessment has been complete d for the patient 01/19/2024 8:03 AM EDT A Body Mass Index follow-up plan has been documented for the patient 12/20/2024 4:59 PM EDT documented as of this encounter Care Teams Migration Agent Relationship Specialty Start Date End Date Kate Juarez MD [address] [place] [address] [phone] PCP - General Hematology and Oncology 05/27/21 Gennaro Winn [address] [place] [phone] Narrative Medicine Narrative Medicine 04/09/21 documented as of this encounter
--- OUTSIDE RECORDS SUMMARY | 2025-01-19 22:55 | XMS_ITS | Encounter Summary ---
Author Organization Healthcare Address [address] [place] [address] Care Team Providers Care Glueline Worker Name Role Phone Gennaro Winn Kate Juarez MD Primary Care Provider [phone] Encounter Details Date Type Department Care Team (Late st Contact Info) Description 12/21/2024 Results Follow-Up [facility] [address] [place] [address] Ivonne Chou DO [address] [facility] [address] [place] [address] Social History Tobacco Use Types Packs/Day Years [...] [facility] [address] [facility], [address] [place] [address] Vidya Corona, COURT CRIER [address] [place] [phone] 12/26/2025 4:00 PM EDT Office Visit [facility] [address] [place] [address] Ivonne Chou, DO [address] [facility] [address] [place] [address] documented as of this encounter Visit Diagnoses Not on filedocumented in this encounter Additional Health Concerns Assessment Noted Time A fall risk assessment has been complete d for the patient 01/19/2024 8:03 AM EDT A Body Mass Index follow-up plan has been documented for the patient 12/20/2024 4:59 PM EDT documented as of this encounter Care Teams Glueline Worker Relationship Specialty Start Date End Date Kate Juarez MD [address] [facility] [address] [place] [phone] PCP - General Hematology and Oncology 05/27/21 Gennaro Winn [address] [place] [address] Narrative Medicine Narrative Medicine 04/09/21 documented as of this encounter
--- OUTSIDE RECORDS SUMMARY | 2025-01-19 22:55 | XMS_ITS | Clinical Summary ---
Author Organization Healthcare Address [address] 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 Elevated TSH 01/07/2022 Hx of autologous stem cell transplant 10/14/2021 Numbness and tingling of both legs 09/16/2021 Palpitations 05/28/2021 Hypokalemia 04/02/2021 Tachycardia 03/28/2021 Folliculitis 03/25/2021 Chemotherapy-induced vomiting 03/19/2021 Chemotherapy-induced nausea 03/15/2021 Encounter for antineoplastic chemotherapy 2020 Acute promyelocytic leukemia in remission 2020 Transaminitis 12/11/2020 Assessment & Plan (12/11/2020 10:36 AM EDT): likely 2/ to chemotherapy (GO) - continue to monitor. 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 He underwent induction with ATRA/PALMER and 4 cycles of consolidation with ATRA/PALMER as described by Nancy Friedman which he tolerated well. His post-consolidation bone marrow biopsy shows complete morphologic, cytogenetic and molecular remission. His last PML-SHERYL from 06/13/2019 was undetectable. He presented with relapsed APL 3 years following his initial diagnosis. He attained a morphologic and cytogenetic remission following re-induction with ATRA/PALMER and GO. PML-SHERYL is still detectable at 0.21258. He requires a consolidative transplantation. Whether autotransplant or allogeneic transplantation will be based on is PML-SHERYL PCR status following cycle 1 of consolidation with ATRA/PALMER. He started consolidation with PALMER/ATRA on 08/28/2020 with ATRA q 2 weeks on 2 weeks off and PALMER 4 weeks on (M-F) and 4 weeks off. Following cycle 1 will plan to repeated bone marrow biopsy for disease reassessment including molecular status of disease. If PML-SHERYL positive will proceed with allogeneic transplantation, however PML-SHERYL negative will proceed with autologous stem cell transplantation. Since he has relapsed APL he is considered to be an increased risk of DRAGGER disease. Will plan for LP for cytology and flow cytometry as well as IT MTX. F/U in 2 weeks for toxicity assessment Resolved Problems Problem Noted Date Diagnosed Date Resolved Date Left lower quadrant abdominal pain 04/27/2021 04/29/2021 Hypomagnesemia 04/02/2021 04/29/2021 Hypophosphatemia 04/02/2021 04/03/2021 Neutropenic fever 03/28/2021 04/03/2021 Mucositis 03/26/2021 04/03/2021 Intertrigo 03/25/2021 04/03/2021 Insomnia 03/19/2021 04/03/2021 Anxiety 03/19/2021 04/03/2021 Encounters Date Type Department Care Team Description 12/21/2024 Results Follow-Up [facility] Endocrinology [address] [place] [address] Ivonne Chou DO 12/20/2024 4:00 PM EDT [facility] [address] [place] [address] Ivonne Chou DO 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 (Primary Dx); Medication management; Other fatigue 12/20/2024 Travel 12/03/2024 Refill [facility] Endocrinology [address] [place] [address] Ivonne Chou DO Hypothyroidism due to David's thyroiditis 11/22/2024 Telephone [facility] Hematology/BMT and Cellular Therapy Program [address] [place] [address] Silvino [place] [address] PA from Last 3 Months Immunizations Immunization Administration Dates Next Due Adenovirus Types 4 and 7 05/02/2016 Anthrax 06/29/2019 DTaP 07/06/1997 DTaP / Hep B / IPV 07/24/2022,03/25/2022, 022 DTaP, Unspecified 07/06/1997 HPV 9-Valent 03/25/2022,10/28/2021 Hep A, Adult 10/19/2017,10/22/2016,05/02/2016 Hib (PRP-T) 07/24/2022,03/25/2022,10/28/2021 IPV 05/02/2016,07/06/1997 Influenza, Unspecified 04/21/2017 Influenza, injectable, MDCK, quadrivalent 2016 Influenza, injectable, quadrivalent 06/01/2019 Influenza, injectable, quadr ivalent, preservative free 08/25/2021 Influenza, recombinant, quad rivalent, injectable, preservative free 05/24/2020 Influenza, seasonal, injecta ble, preservative free 05/02/2016 MMR 07/06/1997 Meningococcal MCV4P 05/02/2016 OPV 07/06/1997 Pneumococcal Conjugate PCV 13 07/24/2022, 022,10/28/2021 Tdap 05/02/2016 Typhoid, ViCPs 06/29/2019 Zoster, Recombinant 07/24/2022,10/28/2021 Family History Medical History Relation Name Comments No Known Problems Father Diabetes Maternal Grandfather Kenney Neal Brandon n III Diabetes type I Maternal Grandfather Kenney Neal Lul beckman III No Known Problems Mother Relation Name Status Comments Father Maternal Grandfather Kenney Neal Seamus III Mother Social History Tobacco Use Types Packs/Day Years [...] Pulse 73 12/20/2024 4:23 PM EDT Temperature 36.5 C (97.7 F) 02/09/2024 7:47 AM EDT Respiratory Rate 18 02/09/2024 7:47 AM EDT Oxygen Saturation 99% 02/09/2024 7:47 AM EDT Inhaled Oxygen Concentration - - Weight 88.7 kg (195 lb 8.8 oz) 12/20/2024 4:23 P M EDT Height 182.9 cm (6') 12/20/2024 4:23 PM EDT Body Mass Index 26.52 12/20/2024 4:23 PM EDT Plan of Treatment Upcoming Encounters Date Type Department Care Team (Late st Contact Info) Description 01/24/2025 8:40 AM EDT Office Visit [facility] Head, Neck & Respiratory [address] [facility], 2nd [place] [address] Vidya Corona, CONFERENCE SERVICES MANAGER [address] [place] [address] 12/26/2025 4:00 PM EDT Office Visit [facility] [address] [place] [address] Ivonne Chou, DO [address] [place] [address] Health Maintenance Due Date Last Done Comments [facility]-/Child/Adol SDOH Screenings 1993 [facility]-Varicella Vaccines (1 of 2 - 13+ 2-dose series) 2006 [facility]- SDOH Screenings 2011 [facility]-Adult SDOH Screenings 2011 HOQ-VBILI-19 Vaccine (3 - Moderna risk series) 11/12/2021 10/15/2021, 09/17/2021 HPV Vaccines (3 - Risk 3-dose SCDM series) 07/26/2022 03/25/2022, 10/28/2021 [facility]-Pneumococcal Vaccine: Pediatrics (0 to 5 Years) and At-Risk Patients (6 to 49 Years) (2 of 2 - PPSV23) 09/18/2022 07/24/2022, 03/25/2022, 10/28/2021 [facility]-Depression Screening 01/18/2025 01/19/2024 [facility]-Influenza Vaccine (#1) 02/19/202508/25, 05/24/2020, 06/01/2019, Additional history exists [facility]-DTaP,Tdap,and Td Vaccines (6 - Td or Tdap) 07/24/2032 07/24/2022, 03/25/2022, 10/28/2021, Additional history exists [facility]-Hepatitis A Vaccines Completed 018, 10/22/2016, 05/02/2016 [facility]-HIV Screening Completed 04/27/2021, , 01/24/2021, Additional history exists [facility]-Hepatitis C Screening Completed 2020, 01/24/2021, 09/15/2020, Additional history exists [facility]-HIB Vaccines Aged Out 07/24/2022, 10/2021, 10/28/2021 No longer eligible based on patient's age to complete this topic [facility]-Hepatitis B Vaccines Completed 023, 03/25/2022, 10/28/2021 [facility]-IPV Vaccines Completed 07/24/2022, 10/2021, 10/28/2021, Additional history exists [facility]-Zoster Vaccines Completed 07/24/2022, [facility]-Obesity Intervention Completed 025, 10/19/2023, 06/01/2023 [facility]-Rotavirus Vaccines Aged Out No lo nger eligible based on patient's age to complete this topic Procedures Procedure Name Priority Date/Time Associated Diagnosis Comments TSH Routine 12/20/2024 4:47 PM EDT 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 Medication management Other fatigue FREE T4, PLASMA Routine 12/20/2024 4:47 PM EDT 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 Medication management Other fatigue HEPATITIS C ANTIBODY - ED W/REFLEX TO HCV QUANT PCR STAT 04/27/2021 12:59 AM EDT HIV 1/2 ANTIBODY/ANTIGEN SCREEN WITH REFLEX TO HIV I/II DIFFERENTIATION STAT 04/27/2021 12:59 AM EDT from Last 3 Months or Most Recently Relevant to Health Maintenance Results * TSH (12/20/2024 4:47 PM EDT) Pathologist [facility] Thyroid Stimulating Hormone, Plasma 2.32 0.40 - 4.20 uIU/mL 12/20/2024 6:57 PM EDT [facility] Blood Venous blood specimen / Unknown Venipuncture / Unknown 12/20/2024 4:47 PM EDT 12/20/2024 4:47 PM EDT Ivonne Chou DO LAB BLOOD ORDERABLES Final Result [facility] [address] [place] [address] * T4, free (12/20/2024 4:47 PM EDT) [facility] Free T4, Plasma 1.4 0.8 - 1.7 ng/dL 12/20/2024 6:57 PM EDT [facility] Blood Venous blood specimen / Unknown Venipuncture / Unknown 12/20/2024 4:47 PM EDT 12/20/2024 4:47 PM EDT us Ivonne Chou DO LAB BLOOD ORDERABLES Final Result [facility] [address] [place] [address] * HIV 1 & 2 Antibody/Antigen Screen (04/27/2021 12:59 AM EDT) Pathologist [facility] HIV 1 & 2 Antibody/Anti gen Screen Nonreactive Nonreactive 04/27/2021 1:01 AM EDT [facility] Blood Venous blood specimen / Unknown Venipuncture / Unknown 04/27/2021 12:59 AM EDT 04/27/2021 1:12 AM EDT Norberto Sandoval MD LAB BLOOD ORDERABLES Final Re sult Performing Organization Address City/[facility]/ZIP Co de Phone Number [facility] [address] [place] [address] * [place] Hepatitis C Antibody (04/27/2021 12:59 AM EDT) [facility] Signature Hepatitis C Antibody Negative Negative 04/27/2021 1:05 AM EDT [facility] Blood Venous blood specimen / Unknown Venipuncture / Unknown 04/27/2021 12:59 AM EDT 04/27/2021 1:12 AM EDT Norberto Sandoval MD LAB BLOOD ORDERABLES Final Re sult Performing Organization Address City/[facility] de Phone Number [facility] [address] [place] [address] from Last 3 Months or Most Recently Relevant to Health Maintenance Insurance [facility] MEDICARE Advance Directives * Full Code (Latest Code Status on File) Date Activated Date Inactivated Comments 04/27/2021 8:23 AM 04/29/2021 4:46 PM Question Answer Comments Patient has decision-making capacity? Yes * Full Code Date Activated Date Inactivated Comments 04/27/2021 6:06 AM 04/27/2021 8:23 AM Question Answer Comments Patient has decision-making capacity? Yes * Full Code Date Activated Date Inactivated Comments 03/12/2021 9:45 AM 04/03/2021 7:36 PM Question Answer Comments Patient has decision-making capacity? Yes Care Teams Project Associate Relationship Specialty Start Date End Date Kate Juarez MD [address] [place] [address] [address] PCP - General Hematology and Oncology 05/27/21 Gennaro Winn [address] [place] [address] Narrative Medicine Narrative Medicine 04/09/21
--- OUTSIDE RECORDS SUMMARY | 2025-01-19 22:55 | XMS_ITS | Encounter Summary ---
Author Organization Healthcare Address [address] [place] [address] Care Team Providers Care Precipitator Supervisor Name Role Phone Gennaro Winn Kate Juarez MD Primary Care Provider [phone] Encounter Details Date Type Department Care Team (Late st Contact Info) Description 11/22/2024 Telephone [facility] CC Hematology/BMT and Cellular Therapy Program [address] [place] [address], LORENZO 800 [facility] [address] [place] [address] Social History Tobacco Use Types Packs/Day Years [...] on file documented as of this encounter Miscellaneous Notes * Telephone Encounter - Kobe Barcenas - 11/22/2024 9:41 AM EDT Attempted to reach patient to see if he wished to schedule follow up. Left VM to call back if he does. documented in this encounter Plan of Treatment Upcoming Encounters Date Type Department Care Team (Late st Contact Info) Description 01/24/2025 8:40 AM EDT Office Visit [facility] Head, Neck & Respiratory 800 [facility], [address] [place] [address] Vidya Corona, SUBJECT SCIENTIFIC RESEARCH [address] [place] [address] 12/26/2025 4:00 PM EDT Office Visit [facility] [address] [place] [address] Ivonne Chou, DO [address] [address] documented as of this encounter Visit Diagnoses Not on filedocumented in this encounter Additional Health Concerns Assessment Noted Time A fall risk assessment has been complete d for the patient 01/19/2024 8:03 AM EDT A Body Mass Index follow-up plan has been documented for the patient 10/19/2023 8:51 PM EDT documented as of this encounter Care Teams Precipitator Supervisor Relationship Specialty Start Date End Date Kate Juarez MD [address] [facility] [address] [place] [address] PCP - General Hematology and Oncology 05/27/21 Gennaro Winn [address] [place], [place] [phone] Narrative Medicine Narrative Medicine 04/09/21 documented as of this encounter
--- OUTSIDE RECORDS SUMMARY | 2025-01-19 22:55 | XMS_ITS | Clinical Summary ---
Author Organization [facility] Address [address] [place] [address] Phone [email or web address] Care Team Providers Care Spiral Spring Winder Name Role Phone Unavailable Primary Care Provider [...] Sign Reading Time Taken Comments Blood Pressure 110/74 07/07/2024 10:28 PM EST Pulse 90 07/07/2024 10:28 PM EST Temperature 36.9 C (98.5 F) 07/07/2024 10:28 PM EST Respiratory Rate 18 12/30/2022 8:15 AM EDT Oxygen Saturation 98% 08/24/2023 10:17 PM EST Inhaled Oxygen Concentration - - Weight 83.9 kg (185 lb) 07/07/2024 10:28 PM EST Height 182.9 cm (6') 07/07/2024 10:28 PM EST Body Mass Index 25.09 07/07/2024 10:28 PM EST Plan of Treatment Health Maintenance Due Date Last Done Comments Dental Cleaning/Exam 1993 HIV Screening 1993 Hepatitis C Screening 1993 Hep B Infection Screening - Triple Screen 2011 Covid-19 Immunization (3 - Moderna risk series) 11/12/2021 10/15/2021, 09/17/2021 HPV Immunization (3 - Risk male 3-dose series) 07/26/2022 03/25/2022, 10/28/2021 Annual Preventive Exam 12/31/2023 12/30/2022 Influenza Immunization (#1) 2025 03/0 12/2021, 05/24/2020, 04/21/2017, Additional history exists Tetanus Diphtheria and Pertussis Immunization (6 - Td or Tdap) 07/24/2032 07/24/2022, 03/25/2022, 10/28/2021, Additional history exists Hepatitis A Immunization Aged Out 018, 10/22/2016, 05/02/2016 No longer eligible based on patient's age to complete this topic HIB Immunization Aged Out 07/24/2022, 10/2021, 10/28/2021 No longer eligible based on patient's age to complete this topic Hepatitis B Immunization Completed 023, 03/25/2022, 10/28/2021 Pneumococcal: Ped (0 to 5 Yrs) and At-Risk Member (6 to 64 Yrs) Aged Out 07/24/2022, 03/25/2022, 10/28/2021 No longer eligible based on patient's age to complete this topic Polio Immunization Completed 07/24/2022, 1 , 10/28/2021, Additional history exists Varicella Immunization Aged Out No lo nger eligible based on patient's age to complete this topic
--- OUTSIDE RECORDS SUMMARY | 2025-01-19 22:55 | XMS_ITS | Encounter Summary ---
Author Organization [facility] Address [address] [place] [address] Care Team Providers Care Technical Sales Engineer Name Role Phone Gennaro Winn Kate Juarez MD Primary Care Provider [phone] Encounter Details Date Type Department Care Team (Late st Contact Info) Description 01/08/2021 Social Work Psych Oncology [address] [place] [address] [place] [address] Social History Tobacco Use Types Packs/Day Years Used Date Smoking Tobacco: Never Smokeless Tobacco: Never PHQ-2 Answer Date Recorded Patient Health Questionnaire-2 Score 0 12/25/2020 Sex and Gender Information Value Date Recorded Sex Assigned at Not on file Legal Sex Male 8:50 PM EDT Gender Identity Not on file Sexual Orientation Not on file COVID-19 Exposure Response Date Recorded In the last month, have you been in contact with someone who was confirmed or suspected to have Coronavirus / COVID-19? No / Unsure 01/08/2021 12:30 PM EDT documented as of this encounter Miscellaneous Notes * Progress Notes - Windy Aranda - 01/08/2021 7:25 PM EDT Visit Type: PsychOncVT: In Person Visit Time Spent with Patient and/or Caregivers: 20 minutes Services Provided: Emotional Support and Financial Assistance Referrals: Psych-Onc Counseling, Leukemia and Lymphoma Society and Other/ NMDP Peer Support Program; [facility] Peer Support Program Education: Psych-Onc Services, Emotional Side Effects of Treatment and Financial Support/Aid Narrative: general farmworker met with patient in procedure room to provide education on licensed social worker role, psych-oncology services, and provide resource information to address coping with emotional sideeffects of relapse disease. Patient was pleasant, cooperative, and readily engaged during conversation. He acknowledges that when initially diagnosed, he did experience situational depression but was able to cope with strategies of his own (breathing exercises, support system, etc). He discloses that since encountering relapse after being in remission for approximately 3 years, he has experiencedincreased feelings of being overwhelmed and anxiety. Plan is for patient to move towards autologousstem-cell transplant in the coming weeks which has exasperated this because unknowns regarding more fear of relapse, tentative long hospitalization, and unknowns regarding what life will look like him after this procedure. At times it has reached the point where he may experience bouts of panic. Social work continued to actively listen and discussed intervention to help with coping with increasedanxiety and fears. He was educated specifically on peer support programs to speak with other transplant patients and psych-oncology counseling and was open to all. Social work will make referral to both NMDP/[facility] Peer Connect Program and BMT [facility] Connecting and internal referral psych-oncology counseling. Patient mentions that his significant is one of his strongest support persons along with his friends and family. Social work also provided education on disease specific financial resources resources through Leukemia & Lymphoma Society to which patient mentioned these would be helpful (co-pay assistance, patient aid, and co-pay assistance).. Social work obtained income information and will apply via patient portal on this date. He was informed of licensed social worker availability and encouraged to reach out as needs arise. documented in this encounter Plan of Treatment Upcoming Encounters Date Type Department Care Team ([facility] st Contact Info) Description 01/24/2025 8:40 AM EDT Office Visit [facility] Head, Neck & Respiratory [address] [place] [address] Vidya Corona, CELL TECHNICIAN [address] [place] [address] 12/26/2025 4:00 PM EDT Office Visit [facility] Endocrinology [address] [place] [address] Ivonne Chou, DO [address] [place] [address] documented as of this encounter Visit Diagnoses Not on filedocumented in this encounter Additional Health Concerns Infection Onset Date Last Indicated Resolved Time Gastrointestinal Rule-Out Comment:No longer having diarrhea, afebrile 03/18/2021 03/18/2021 03/19/2021 10:29 AM EDT C. difficile Rule-Out Comment:No longer having diarrhea x 2 days, afebrile 03/18/2021 03/18/2021 03/19/2021 10:29 AM EDT C. difficile Rule-Out Comment:Patient without diarrhea x 3 days now, afebrile, no s/s of C.diff. 03/20/2021 03/20/2021 03/20/2021 8:18 AM E DT C. difficile Rule-Out 03/21/2021 03/21/20212020 10:41 PM EDT Gastrointestinal Rule-Out 03/21/2021 03/21/2021 11:23 PM EDT Respiratory Rule-Out 03/29/2021 03/29/2021 021 10:08 PM EDT Gastrointestinal Rule-Out 03/30/2021 03/30/2021 4:42 AM EDT C. difficile Rule-Out 03/30/2021 03/30/20212020 4:51 AM EDT Gastrointestinal Rule-Out 04/27/2021 04/27/2021 5:23 PM EST C. difficile Rule-Out 04/27/2021 04/27/20212020 5:23 PM EST Assessment Noted Time A fall risk assessment has been complete d for the patient 01/08/2021 12:40 PM EDT documented as of this encounter Care Teams Technical Sales Engineer Relationship Specialty Start Date End Date Kate Juarez MD [address] [place] [address] [address] PCP - General Hematology and Oncology 05/27/21 Gennaro Winn [address] [place] [address] Narrative Medicine Narrative Medicine 04/09/21 documented as of this encounter
--- OUTSIDE RECORDS SUMMARY | 2025-01-19 22:55 | XMS_ITS | Encounter Summary ---
Author Organization Healthcare Address [address] [place] [address] Care Team Providers Care District Sales Leader Name Role Phone Gennaro Winn Unavailable Kate Juarez MD Primary Care Provider [phone] Reason for Visit * Reason Comments Med Change Request Encounter Details Date Type Department Care Team (Late st Contact Info) Description 12/03/2024 Refill [facility] [address] [place] [address] Ivonne Chou DO [address] 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 Sending to clinic for review. Additional info: Clarification required: Patient has not completed required labs in > 12 months.Please review. documented in this encounter Plan of Treatment Upcoming Encounters Date Type Department Care Team (Late st Contact Info) Description 01/24/2025 8:40 AM EDT Office Visit Pav CC Head, Neck & Respiratory 800 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 documented in this encounter Additional Health Concerns Assessment Noted Time A fall risk assessment has been complete d for the patient 01/19/2024 8:03 AM EDT A Body Mass Index follow-up plan has been documented for the patient 10/19/2023 8:51 PM EDT documented as of this encounter Care Teams District Sales Leader Relationship Specialty Start Date End Date Kate Juarez MD 800 [facility] Cancer [address] [address] PCP - General Hematology and Oncology 05/27/21 Gennaro Winn [address] [place] [address] Narrative Medicine Narrative Medicine 04/09/21 documented as of this encounter
--- OUTSIDE RECORDS SUMMARY | 2025-01-19 22:55 | XMS_ITS | Clinical Summary ---
[facility] Address [address] [place] [address] Care Team Providers Care Network Security Administrator Name Role Phone Provider, No Known Primary Care Provider [phone] Allergies Active Allergy Reactions Criticality Noted Date Comments Penicillins Rash Low 08/22/2017 Medications cefdinir (OMNICEF) 300 MG capsule Take 1 capsule by mouth 2 (Two) Times a Day. 20 capsule 08/22/2017 Active Social History Tobacco Use Types Packs/Day Years Used Date Smoking Tobacco: Never Alcohol Use Standard Drinks/Week Comments Yes 0 (1 standard drink = 0.6 oz pur e alcohol) occassional Abuse Screen Answer Date Recorded Unsafe at Home or Work/School Not on file Feels Threatened by Someone? Not on file 03/2023 Does Anyone Keep You from Co ntacting Others or Doint Things Outside the Home? Not on file 03/30/2023 Physical Sign of Abuse Present Not on file 1 Housing Stability Answer Date Recorded Current Living Arrangements Not on file 03/21 Potentially Unsafe Housing Conditions Not on compa e 03/30/2023 Family and Community Support Answer Bro e Recorded Help with Day-to-Day Activities Not on file 03/30/2023 Lonely or Isolated Not on file 03/30/2023 Employment Answer Date Recorded Do you want help finding or keeping work or a valerie b? Not on file 03/30/2023 Disabilities Answer Date Recorded Concentrating, Remembering, or Making Decisions Difficulty Not on file 03/30/2023 Doing Errands Independently Difficulty Not on fi le 03/30/2023 Education Answer Date Recorded Help with school or training? Not on file Preferred Language Not on file 03/30/2023 Sex and Gender Information Value Date Recorded Sex Assigned at Not on file Legal Sex Male 1:21 PM EDT Gender Identity Not on file Sexual Orientation Not on file Last Filed Vital Signs Vital Sign Reading Time Taken Comments Blood Pressure 124/74 08/22/2017 9:01 AM EST Pulse 104 08/22/2017 9:01 AM EST Temperature 37.6 C (99.6 F) 08/22/2017 9:01 AM EST Respiratory Rate 15 08/22/2017 9:01 AM EST Oxygen Saturation 98% 08/22/2017 9:01 AM EST Inhaled Oxygen Concentration - - Weight 74.8 kg (165 lb) 08/22/2017 9:01 AM EST Height 182.9 cm (6') 08/22/2017 9:01 AM EST Body Mass Index 22.38 08/22/2017 9:01 AM EST Plan of Treatment Health Maintenance Due Date Last Done Comments ANNUAL PHYSICAL 1993 HEPATITIS C SCREENING 1993 TDAP/TD VACCINES (1 - Tdap) 2012 COVID-19 Vaccine (2023-2 5 season) 2024 INFLUENZA VACCINE 03/21/2025 Pneumococcal Vaccine 0-49 Aged Out No longer eligible based on patient's age to complete this topic Insurance PPO Member Subscriber Plan / Payer (Ef fective 2016-Present) Name:Fortunato [address] Relation to Subscriber:Self Name:Fortunato Way Payer ID:[id number] (NAIC) Type:Not on file Address: [facility] [id number] [place] [id number] Care Teams Network Security Administrator Relationship Specialty Start Date End Date Provider, No Known [facility] [place] [address] PCP - General 08/22/17
--- OUTSIDE RECORDS SUMMARY | 2025-01-19 22:55 | XMS_ITS | Encounter Summary ---
Author Organization Healthcare Address [address] 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 Social History Tobacco Use Types Packs/Day Years Used Date Smoking Tobacco: Never Smokeless Tobacco: Never Alcohol Use Standard Drinks/Week Comments Not Currently 0 (1 standard drink = 0.6 oz pur e alcohol) ocassionally PHQ-2 Answer Date Recorded Patient Health Questionnaire-2 Score 0 10/30/2022 PHQ-2A Answer Date Recorded Patient Health Questionnaire-2 Score 0 10/30/2022 Sex and Gender Information Value Date Recorded Sex Assigned at Not on file Legal Sex Male 8:50 PM EDT Gender Identity Not on file Sexual Orientation Not on file documented as of this encounter Miscellaneous Notes * Telephone Encounter - Bonnie Jones APRN, CNS - 04/27/2023 8:33 PM EST No additional medications until seen. 14 days sent * Telephone Encounter - Latha Pereira RN - 04/27/2023 3:01 PM EST Refill request for Levothyroxine 112 mcg . Last OV 04/13/22 was suppose to get labs in May 2022 but did not. No showed on 08/14/22 and 02/25/23. Last labs 12/21/22. Follow-up scheduled on 05/05/23. Latha Pereira RN * Telephone Encounter - Dell Orta - 04/27/2023 10:01 AM EST I have scheduled PT 05/05/23 @10:00 js/ Bonnie * Telephone Encounter - Donny Ko PharmD - 04/26/2023 3:21 PM EST Refill request does not meet protocol. Sending to clinic for review. Additional info: Already sent in a 30 day supply requesting pt schedule appt. Please review. documented in this encounter Plan of Treatment Upcoming Encounters Date Type Department Care Team (Late st Contact Info) Description 01/24/2025 8:40 AM EDT Office Visit [facility] Res[facility] [address] [facility], [address]nd [place] [address] Vidya Corona, SIRIA [address] [place] [address] 12/26/2025 4:00 PM EDT [facility] [address] [place] [address] Ivonne Chou, DO [address] [facility] [address] [place] [address] documented as of this encounter Visit Diagnoses Diagnosis 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
--- OUTSIDE RECORDS SUMMARY | 2025-01-19 22:55 | XMS_ITS ---
Author Organization [facility] Address [address] [place] [address] Care Team Providers Care Traffic Attendant Name Role Phone Gennaro Winn Kate Juarez MD Primary Care Provider [phone] Active Problems Problem Noted Date Diagnosed Date Nonspecific pain in the neck region 10/19/2023 Medication management 06/01/2023 Assessment & Plan (12/21/2024 7:40 AM EDT): Orders: TSH; Future T4, free; Future Follow Up [facility]; Future levothyroxine (Synthroid, Levoxyl) 112 MCG tablet; Take 1 tablet by mouth daily. 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 PML-SHERYL is still detectable at 0.80923. He requires a consolidative transplantation. Whether autotransplant [...] considered to be an increased risk of MEDICAL FRONT DESK COORDINATOR disease. Will plan for LP for cytology and flow cytometry as well as IT MTX. F/U in 2 weeks for toxicity assessment Current Treatment and Therapy Plans No current plan information found. Other Current Plans (BMT) Immunization Post AUTO HCT* Plan Start Date:10/28/2021 Plan Provider:Kate Juarez MD Linked Problems Hx of autologous stem cell t ransplant (CMS/HCC) Treatment Medications Current Day (Vacci hany, 24 Months Post HCT - Planned for 11/10/2024) No medications scheduled. No medications schedul ed. Past Treatment and Therapy Plans Apheresis Plan Name Start Date Discontinue Date Treatment Medications Discontinue Reason Plan Provider Cycles Autologous Donor Mobilization (Up-Front Plerixafor) + Apheresis 05/02/2021 No medications scheduled. Therapy Complete Kate Juarez MD 3 of 4 cycles started Oncology Treatment Plan Name Start Date Discontinue Date Treatment Medications Discontinue Reason Plan Provider Cycles 136H: Busulfan / Cyclophosphamide Myeloablative Conditioning (AUTOlogous Transplant) 021 05/02/2021 busulfan (Busulfex) IVPBcyclophosphamide (Cytoxan) IVPB in 100 mL Therapy Complete Kate Juarez MD 1 (2 of 2 cycles) started Arsenic / Tretinoin Consolidation, Every 56/28 Days 021 02/25/2021 arsenic (Trisenox) IVPBarsenic trioxide (Trisenox)tretinoin (Vesanoid) Therapy Complete Kate Juarez MD 2 of 4 cycles started Photopheresis Plan Name Start Date Discontinue Date Treatment Medications Discontinue Reason Plan Provider APHERESIS/ PHOTOPHERESIS STEM CELL COLLECTION THERAPY PLAN 03/04/2021 10/14/2021 No medications scheduled. 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 Active Day 3y 10m (03/21/21) N/A N/A N/A * Cell Therapy Appointments (12/19/2024 - 02/19/2025) When Visit Type With Description 01/24/2025 Office Visit Hem Onc - Devora Corona Lifetime Dose Tracking * Chemical Lifetime Dose Automatic Entry Manual Entr y Fluoro Time 0.8 minutes 0.8 minutes 0 minutes Air Kerma 5 mGy 5 mGy 0 mGy Air Kerma Area Product 184.2 Gym 184.2 Gym 0 Gym Resolved Problems Problem Noted Date Diagnosed Date Resolved Date Left lower quadrant abdominal pain 04/27/2021 04/29/2021 Hypomagnesemia 04/02/2021 04/29/2021 Hypophosphatemia 04/02/2021 04/03/2021 Neutropenic fever 03/28/2021 04/03/2021 Mucositis 03/26/2021 04/03/2021 Intertrigo 03/25/2021 04/03/2021 Insomnia 03/19/2021 04/03/2021 Anxiety 03/19/2021 04/03/2021
--- OUTSIDE RECORDS SUMMARY | 2025-01-19 22:55 | XMS_ITS | Encounter Summary ---
Author Organization Healthcare Address [address] 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 Patient must schedule an appointment and be seen in clinic for additional refills. 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
--- OUTSIDE RECORDS SUMMARY | 2025-01-19 22:55 | XMS_ITS | Encounter Summary ---
Author Organization Healthcare Address [address] 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 [...] Pav [facility] Head[facility] Neck & Respiratory [address] [facility], [address]nd [place] [address] Vidya Corona, JOB ANALYSIS MANAGER [address] [place] [phone] 12/26/2025 4:00 PM EDT Office Visit [facility] [address] [place] [address] Ivonne Chou, DO [address] [phone] documented as of this encounter Visit Diagnoses Diagnosis 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
[2025-01-19 23:20] VITALS: BP 118/84; PULSE 85; O2SAT 96
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
[2025-01-19 23:40] VITALS: BP 124/90; PULSE 87; O2SAT 97
[2025-01-20] MEDS: ACETAMINOPHEN 500MG TAB 1000 MG PO (00:04)
[2025-01-20] MEDS: IBUPROFEN 800 MG TABLET PO (00:04)
[2025-01-20 00:11] LABS: Hematocrit 46.0 % (42.0-52.0); Hemoglobin 15.4 g/dL (14.1-18.0); Immature Granulocytes % 0.3 %; Mean Corpuscular HGB Conc 33.5 g/dL (31.8-35.4); Mean Corpuscular Hemoglobin 30.3 pg (27.0-31.2); Mean Corpuscular Volume 90.4 fl (80-94); Nucleated Red Blood Cells % 0 %; Platelet Count 208 K/mm3 (142-424); Red Blood Count 5.09 M/mm3 (4.60-6.20); Red Cell Distribution Width-SD 41.4 fL; White Blood Count 9.7 K/mm3 (4.8-10.8)
[2025-01-20 00:19] LABS: Alanine Aminotransferase 26 U/L (12-78); Albumin Level 5.0 g/dl (3.5-5.0); Albumin/Globulin Ratio 1.6 (1.1-1.8); Alkaline Phosphatase 93 U/L (38-126); Anion Gap 11.4 mEq/L (5-15); Aspartate Amino Transferase 36 U/L (17-59); Bilirubin,Total 0.6 mg/dl (0.2-1.3); Blood Urea Nitrogen 12 mg/dl (9-20); Calcium 9.8 mg/dl (8.4-10.2); Carbon Dioxide 29 mmol/L (22.0-30.0); Chloride 105 mmol/L (98-107); Creatinine Clearance Estimated 145 mL/min (50-200); Creatinine,Serum 0.90 mg/dl (0.66-1.25); Estimated Glomerular Filt Rate 98 ml/min (>60); GFR (African American) 119 ML/MIN (>60); Globulin 3.2 g/dL (1.3-3.2); Glucose 110 mg/dl (74-100); Potassium 4.4 mmoL/L (3.5-5.1); Sodium 141 mmol/L (136-145); Total Protein,Serum 8.2 g/dl (6.3-8.2)
[2025-01-20] MEDS: IOPAMIDOL-370 (76%);100ML BOTTLE 120 ML IV (00:19)
[2025-01-20] MEDS: SODIUM CHLORIDE 0.9% 10ML SYR (RAD ONLY) 10 ML IV (00:19)
[2025-01-20] MEDS: 0.9 % SODIUM CHLORIDE 50 ML VIAL 100 ML IV (00:19)
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
[2025-01-20 00:33] LABS: INR 1.00 (0.9-1.1); Prothrombin Time 11.1 seconds (10.1-12.5)
[2025-01-20 01:57] VITALS: BP 122/87; PULSE 82; RESP 17; TEMP 36.6; O2SAT 99
== END 2025-01-20 02:08 | disposition home or self-care (01) ==
PROVIDERS: Emergency Provider Emergency Medicine
DX: S89.92XA Unspecified injury of left lower leg, initial encounter (principal); M79.662 Pain in left lower leg; W22.8XXA Striking against or struck by other objects, initial encounter
CPT/HCPCS: 73701; 73706; 80053; 85025; 85610; 99284; Q9967